=== PATIENT | female | born 1965 | race Caucasian/White ===

== ENCOUNTER 2025-05-04 07:08 | Day surgery (SDC) | payer BC ==
[2025-05-02 08:35] VITALS: BMI 23.5
[2025-05-04 08:17] LABS: Hematocrit 38.3 % (34.9-44.5)
[2025-05-04 08:32] LABS: BHCG - Serum Negative (NEGATIVE); Pregs Control Background? CLEAR/WHITE (CLR/WHITE); Pregs Control Bar Appear? YES (CONTROL BAR)
[2025-05-04] MEDS ORDERED: Ondansetron PF 4 MG/2 ML Vial ONE (09:12)
[2025-05-04] MEDS ORDERED: Lidocaine 1% PF 5 ML VIAL ONE (09:12)
[2025-05-04] MEDS ORDERED: PROPOFOL 20 ML ONE ×2 (09:12→09:13)
[2025-05-04] MEDS ORDERED: Lidocaine 1% w/Epinephrine 1:200K 30 ML VIAL ONE (09:42)
[2025-05-04] MEDS ORDERED: CEFAZOLIN 1 GM VIAL ONE (10:18)
[2025-05-04] MEDS ORDERED: Glycopyrrolate 0.2 MG/ML 5 ML SYRINGE ONE (10:18)
[2025-05-04] MEDS ORDERED: PHENYLEPHRINE-NS 100 MCG/ML 10 ML SYRINGE ONE (10:30)
[2025-05-04] MEDS ORDERED: HYDROcodone/Acetaminophen 5/325 mg Tablet ONE (12:24)
== END 2025-05-04 12:50 | disposition home or self-care (01) ==
LOC: CSHSDC 07:08
PROVIDERS: ATTEND Otolaryngology Plastic Surgery within the Head & Neck
PROC: 0GTP0ZZ Resection of Left Inferior Parathyroid Gland, Open Approach (ICD-10-PCS; principal; 2025-05-04)
DX: E21.0 Primary hyperparathyroidism (principal); E11.9 Type 2 diabetes mellitus without complications; E78.5 Hyperlipidemia, unspecified; K21.9 Gastro-esophageal reflux disease without esophagitis; G47.33 Obstructive sleep apnea (adult) (pediatric); F41.9 Anxiety disorder, unspecified; F32.A Depression, unspecified; Z90.49 Acquired absence of other specified parts of digestive tract; Z79.899 Other long term (current) drug therapy
CPT/HCPCS: 36415; 84703; 85014; 88305; 93005; 93010; J0690; J1100; J2250; J2405; J2704; J3010